=== PATIENT | male | born 1970 ===

== ENCOUNTER 2017-01-13 09:48 | Observation (INO) | payer MEDICAID ==
--- NOTE | 2017-01-13 09:54 | ED PDOC ---
Arrival/HPI - General Chief Complaint: GI Problem Time Seen by Provider: 01/13/17 09:52 - History of Present Illness Narrative History of Present Illness (Text): 01/13/17 10:10 Patient is a 46 y/o M with hx of anxiety, on daily medication, presenting with chest pain. Patient reports that at 915 this morning he had the acute onset of L sided chest pressure radiating to his L arm after being detained by immigration. He reports that he feels extremely anxious and worried that he is going to bed deported. He reports hx of anxiety, DM, and htn. Denies hx of cardiac workup. 01/13/17 15:27 Family/Social History - Physician Review Nursing Documentation Reviewed: Yes Family/Social History: No Known Family HX Allergies/Home Meds Allergies/Adverse Reactions: Allergies No Known Allergies Allergy (Verified 01/13/17 09:50) Review of Systems - Review of Systems Constitutional: absent: Fatigue, Weight Change, Fevers ENT: absent: Hearing Changes Respiratory: absent: SOB, Cough, Sputum, Wheezing Cardiovascular: Chest Pain, Palpitations. absent: Edema, Calf Pain, MANRIQUE, Orthopnea, Syncope Gastrointestinal: absent: Abdominal Pain Genitourinary Male: absent: Dysuria Neurological: absent: Headache Psychiatric: Anxiety Physical Exam Vital Signs Temp Pulse Pulse Resp BP BP Pulse Ox 01/13/17 15:21 97 01/13/17 13:42 89 97 01/13/17 10:11 120 H 145/90 01/13/17 10:00 97.0 F L 123 H 20 145/90 98 Temperature: Afebrile Blood Pressure: Normal Pulse: Tachycardic Respiratory Rate: Normal Appearance: Positive for: Well-Appearing, Non-Toxic, Comfortable Pain Distress: None Mental Status: Positive for: Alert and Oriented X 3 - Systems Exam Head: Present: Atraumatic, Normocephalic Pupils: Present: PERRL Extroacular Muscles: Present: EOMI Conjunctiva: Present: Normal Mouth: Present: Moist Mucous Membranes Neck: Present: Normal Range of Motion Respiratory/Chest: Present: Clear to Auscultation, Good Air Exchange. No: Respiratory Distress Cardiovascular: Present: Normal S1, S2, Tachycardic. No: Murmurs Abdomen: No: Tenderness, Distention Upper Extremity: Present: Normal Inspection, Normal ROM, NORMAL PULSES. No: Edema Lower Extremity: Present: Normal Inspection, NORMAL PULSES. No: Edema, CALF TENDERNESS, Tenderness Neurological: Present: GCS=15, CN II-XII Intact Psychiatric: Present: Alert, Oriented x 3 Medical Decision Making ED Course and Treatment: 01/13/17 09:53 Patient was tachycardia on arrival. Presentation is more consistent with anxiety, but due to risk factors, will get trop x 2 to evaluate. EKG shows sinus tachycardia at 126bpm with no ST elevation. Differential dx anxiety vs PE vs acs 01/13/17 13:00 Repeat HR:94. Cxray negative. Trop x 1 negative. FS now 170 after treatment with insulin. Will sign out to Dr. De León to follow-up second trop at 4pm - Lab Interpretations Lab Results: 01/13/17 10:30 01/13/17 10:30 Lab Results 01/13/17 10:30: WBC 8.1, RBC 4.77, Hgb 14.6, Hct 43.0, MCV 90.1, MCH 30.6, MCHC 34.0, RDW 12.9, Plt Count 254, MPV 8.8, Neut % (Auto) 66.8, Lymph % (Auto) 23.5 , Appling % (Auto) 7.6, Eos % (Auto) 1.6, Baso % (Auto) 0.5, Neut # 5.4, Lymph # 1.9, Appling # 0.6, Eos # 0.1, Baso # 0.0 01/13/17 10:30: Sodium 140, Potassium 4.0, Chloride 99, Carbon Dioxide 19 L, Anion Gap 26 H, BUN 16, Creatinine 0.8, Est GFR ( Amer) > 60, Est GFR ( Non-Af Amer) > 60, Random Glucose 364 H, Calcium 9.1, Total Bilirubin 0.9, AST 113 H, ALT 96 H, Alkaline Phosphatase 84, Total Creatine Kinase 440 H, CK-MB ( Mass) 1.59, Troponin I 0.0150, Total Protein 8.3 H, Albumin 4.9, Globulin 3.4, Albumin/Globulin Ratio 1.5 01/13/17 09:57: POC Glucose (mg/dL) 324 H - RAD Interpretation Radiology Orders: 01/13/17 10:05 CHEST PORTABLE [RAD] Stat - Medication Orders Current Medication Orders: Sodium Chloride (Sodium Chloride 0.9%) 1,000 mls @ 1,000 mls/hr IV .Q1H SHELLEY Stop: 01/14/17 11:46 Last Admin: 01/13/17 11:53 Dose: 1,000 mls/hr Discontinued Medications Alprazolam (Xanax) 0.5 mg PO STAT STA Stop: 01/13/17 11:02 Last Admin: 01/13/17 11:36 Dose: 0.5 mg Alprazolam (Xanax) Confirm Administered Dose 0.5 mg .ROUTE .STK-MED ONE Stop: 01/13/17 11:30 Aspirin (Aspirin) 325 mg PO STAT STA Stop: 01/13/17 10:07 Last Admin: 01/13/17 11:36 Dose: 325 mg Aspirin (Aspirin) Confirm Administered Dose 325 mg .ROUTE .STK-MED ONE Stop: 01/13/17 11:30 Insulin Human Regular (Humulin R) 4 units SC STAT STA Stop: 01/13/17 11:47 Last Admin: 01/13/17 11:53 Dose: 4 units Disposition/Present on Arrival - Present on Arrival Any Indicators Present on Arrival: No - Disposition Have Diagnosis and Disposition been Completed?: Yes Diagnosis: Anxiety Disposition Time: 03:00 Condition: GOOD
[2017-01-13 10:11] VITALS: BP 145/90; RESP 20; TEMP 97
[2017-01-13 10:40] LABS: BASO % 0.5 % (0.0-2.0); EOS # 0.1 K/uL (0.0-0.7); EOS % 1.6 % (0.0-4.0); LYMPH # 1.9 K/uL (1.0-4.3); LYMPH % 23.5 % (20.0-40.0); MEAN CELL VOLUME 90.1 fl (80.0-94.0); MEAN CORPUSCULAR HEMOGLOBIN 30.6 pg (27.0-31.0); MEAN PLATELET VOLUME 8.8 fl (7.2-11.7); MONO # 0.6 K/uL (0.0-0.8); MONO % 7.6 % (0.0-10.0); NEUT # 5.4 K/uL (1.8-7.0); NEUT % 66.8 % (50.0-75.0); RED CELL DISTRIBUTION WIDTH 12.9 % (11.5-14.5); WHITE BLOOD COUNT 8.1 K/uL (4.8-10.8)
[2017-01-13 10:55] LABS: ALB/GLOB RATIO 1.5 (1.0-2.1); ALKALINE PHOSPHATASE 84 U/L (38-126); ALT/SGPT 96 U/L (21-72); AST/SGOT 113 U/L (17-59); BILIRUBIN,TOTAL 0.9 mg/dl (0.2-1.3); BLOOD UREA NITROGEN 16 mg/dl (9-20); CALCIUM 9.1 mg/dL (8.4-10.2); CARBON DIOXIDE 19 mmol/L (22-30); CHLORIDE 99 mmol/L (98-107); GFR AFRICAN-AMERICAN > 60; GLUCOSE,RANDOM 364 mg/dL (75-110); SODIUM 140 mmol/l (132-148); TOTAL PROTEIN 8.3 G/DL (6.3-8.2)
[2017-01-13] MEDS ORDERED: Insulin Regular 100 units/ml SC STA (11:46)
[2017-01-13] MEDS ORDERED: Sodium Chloride 0.9% 1,000 ML IV SCH (12:00)
--- NOTE | 2017-01-13 13:05 | RAD ---
HISTORY: chest pain, anxiety COMPARISON: None. FINDINGS: LUNGS: No active pulmonary disease. PLEURA: No significant pleural effusion identified, no pneumothorax apparent. CARDIOVASCULAR: No radiographic findings to suggest acute or significant cardiovascular disease. OSSEOUS STRUCTURES: No significant abnormalities. VISUALIZED UPPER ABDOMEN: Normal. OTHER FINDINGS: None. IMPRESSION: No active disease.
[2017-01-13 13:43] VITALS: PULSE 89; O2SAT 97
--- NOTE | 2017-01-13 15:21 | ED PDOC ---
- Laboratory Results Result Diagrams: 01/13/17 10:30 01/13/17 10:30 - ECG O2 Sat by Pulse Oximetry: 97 Medical Decision Making Medical Decision Makin:00 Patient is signed out to me by Kimberley Gomez MD pending repeat troponin for chest pain (likely anxiety) and final disposition. 17:00 Troponin negative. Pt stable for dc. Scribe Attestation: Documented by Altagracia Black, acting as a scribe for Shiela Ramirez MD. Provider Scribe Attestation: All medical record entries made by the Scribe were at my direction and personally dictated by me. I have reviewed the chart and agree that the record accurately reflects my personal performance of the history, physical exam, medical decision making, and the department course for this patient. I have also personally directed, reviewed, and agree with the discharge instructions and disposition. Disposition Counseled Patient/Family Regarding: Studies Performed, Diagnosis, Need For Followup - Clinical Impression Clinical Impression: Anxiety - POA Present On Arrival: Poor Glycemic Control - Disposition Disposition: Discharged/Transfer to Law Enforcement Disposition Time: 17:07 Condition: IMPROVED
== END 2017-01-13 17:09 ==
LOC: H.ER 09:48 → MERGE 10:34 → H.EROBSV 10:34
PROVIDERS: ADMIT Emergency Medicine; ATTEND Emergency Medicine
DX: F41.9 Anxiety disorder, unspecified (principal); E11.9 Type 2 diabetes mellitus without complications; I10 Essential (primary) hypertension

== ENCOUNTER 2017-09-23 14:36 | Emergency (ER) | payer SELFPAY ==
[2017-09-23 14:36] VITALS: BMI 25.8
[2017-09-23 14:45] VITALS: RESP 22; TEMP 98; O2SAT 97
--- NOTE | 2017-09-23 15:19 | ED PDOC ---
HPI: General Adult Time Seen by Provider: 09/23/17 14:55 Chief Complaint (Nursing): Medical Clearance Chief Complaint (Provider): Medical Clearance History Per: Patient History/Exam Limitations: no limitations Additional Complaint(s): Patient is a 46 year old male with a history of hypertension and diabetes, brought in by police for medical clearance for incarceration. Patient reports he has not eaten anything today. Complaining of a headache. States he has not taken medications in the past 2 days, and is unsure of blood sugar. Blood pressure is 161/109 on arrival. Patient cannot recall what medications he usually takes. PMD: Provider TBD Past Medical History Reviewed: Historical Data, Nursing Documentation, Vital Signs Vital Signs: Last Vital Signs Temp 98 F 09/23/17 14:42 Pulse 103 H 09/23/17 16:54 Resp 22 09/23/17 14:42 BP 161/109 H 09/23/17 16:54 Pulse Ox 97 09/23/17 16:36 - Medical History PMH: Depression, Diabetes, HTN, Hypercholesterolemia Denies: HIV, Chronic Kidney Disease - Family History Family History: States: Unknown Family Hx - Immunization History Hx Tetanus Toxoid Vaccination: Yes (10/31/15) - Home Medications Home Medications: Ambulatory Orders Medication Instructions Recorded Benztropine [Cogentin] 1 mg PO HS #30 tab 11/05/15 DiphenhydrAMINE [Benadryl] 50 mg IM Q6 PRN #0 vial 11/05/15 Gabapentin [Neurontin] 300 mg PO BID #60 cap 11/05/15 Gabapentin [Neurontin] 600 mg PO HS #30 tab 11/05/15 GlipiZIDE [Glucotrol] 10 mg PO ACB #0 tab 11/05/15 Haloperidol [Haldol] 2 mg PO HS #30 tab 11/05/15 Lisinopril [Zestril] 20 mg PO DAILY #0 tab 11/05/15 Magnesium Hydroxide [Milk Of 30 ml PO HS PRN #0 udc 11/05/15 Magnesia] Metoprolol Succinate [Toprol XL] 50 mg PO DAILY #0 tab 11/05/15 Multimineral/Multivitamin 1 tab PO DAILY #0 tab 11/05/15 [Therapeutic-M Tab] Pravastatin Sodium [Pravachol] 40 mg PO DAILY #0 tab 11/05/15 SITagliptin [Januvia] 100 mg PO DAILY #0 tab 11/05/15 Thiamine [Vitamin B1 Tab] 100 mg PO DAILY #0 tab 11/05/15 amLODIPine [Norvasc] 10 mg PO DAILY #0 tab 11/05/15 hydroCHLOROthiazide [Hydrodiuril] 25 mg PO DAILY #0 tab 11/05/15 traZODone [Desyrel] 50 mg PO HS PRN #30 tab 11/05/15 - Allergies Allergies/Adverse Reactions: Allergies Allergy/AdvReac Type Severity Reaction Status Date / Time No Known Allergies Allergy Verified 06/26/14 21:48 Review of Systems ROS Statement: Except As Marked, All Systems Reviewed And Found Negative Cardiovascular: Negative for: Chest Pain, Palpitations Respiratory: Negative for: Shortness of Breath Gastrointestinal: Negative for: Nausea, Vomiting, Abdominal Pain Neurological: Positive for: Headache. Negative for: Weakness, Dizziness Psych: Negative for: Suicidal ideation Physical Exam - Reviewed Nursing Documentation Reviewed: Yes Vital Signs Reviewed: Yes - Physical Exam Appears: Positive for: Non-toxic, No Acute Distress Head Exam: Positive for: ATRAUMATIC, NORMAL INSPECTION, NORMOCEPHALIC Skin: Positive for: Normal Color, Warm, Dry Eye Exam: Positive for: EOMI, Normal appearance, PERRL Neck: Positive for: Normal, Painless ROM Cardiovascular/Chest: Positive for: Regular Rate, Rhythm. Negative for: Murmur Respiratory: Positive for: Normal Breath Sounds. Negative for: Accessory Muscle Use, Respiratory Distress Gastrointestinal/Abdominal: Positive for: Normal Exam, Bowel Sounds, Soft. Negative for: Tenderness Back: Positive for: Normal Inspection. Negative for: Vertebral Tenderness Extremity: Positive for: Normal ROM. Negative for: Pedal Edema, Deformity Neurologic/Psych: Positive for: Alert, Oriented (x3). Negative for: Motor/ Sensory Deficits - ECG O2 Sat by Pulse Oximetry: 97 (RA) Pulse Ox Interpretation: Normal - Progress ED Course And Treament: LOPRESSOR 25 MG X 1 DOSE NORVASC 10 MG X DOSE BP158/96 HR 88 Medical Decision Making Medical Decision Making: Finger Stick is 130. Time: 16:19 Initial Plan: --Norvasc 10 mg PO --Lopressor 25 mg PO Scribe Attestation: Documented by Maylin Bosch, acting as a scribe for Anabel Willett PA-C Provider Scribe Attestation: All medical record entries made by the Scribe were at my direction and personally dictated by me. I have reviewed the chart and agree that the record accurately reflects my personal performance of the history, physical exam, medical decision making, and the department course for this patient. I have also personally directed, reviewed, and agree with the discharge instructions and disposition. Disposition - Clinical Impression Clinical Impression: Hypertension - Patient ED Disposition Is Patient to be Admitted: No - Disposition Referrals: [facility] [Outside] Disposition: Routine/Home Disposition Time: 17:32 Condition: STABLE Additional Instructions: PATIENT IS MEDICALLY AND PSYCHIATRICALLY CLEARED FOR INCARCERATION PLEASE ADDRESS PATIENT'S H/O HYPERTENSION AND DIABETES IF NEEDED AT [facility] Instructions: High Blood Pressure in Adults, Low Salt Diet Forms: [facility] (Estonian)
[2017-09-23 17:31] VITALS: BP 153/96; PULSE 88
== END 2017-09-23 18:05 ==
LOC: H.ER 14:36
DX: I10 Essential (primary) hypertension (principal); E11.9 Type 2 diabetes mellitus without complications

== ENCOUNTER 2017-11-24 15:19 | Inpatient (IN) | payer MEDICAID ==
[2017-11-24 15:19] VITALS: BMI 25.8
[2017-11-24] MEDS ORDERED: Insulin Regular 100 units/ml SC ONE (16:22)
[2017-11-24 16:24] LABS: BASO % 0.5 % (0.0-2.0); EOS # 0.1 K/uL (0.0-0.7); EOS % 1.4 % (0.0-4.0); HEMOGLOBIN 16.1 g/dL (12.0-18.0); LYMPH # 2.4 K/uL (1.0-4.3); LYMPH % 26.1 % (20.0-40.0); MEAN CELL VOLUME 87.9 fl (80.0-94.0); MEAN CORPUSCULAR HEMOGLOBIN 30.5 pg (27.0-31.0); MEAN CORPUSCULAR HGB CONC 34.7 g/dL (33.0-37.0); MEAN PLATELET VOLUME 8.4 fl (7.2-11.7); MONO # 0.7 K/uL (0.0-0.8); MONO % 7.5 % (0.0-10.0); NEUT # 5.9 K/uL (1.8-7.0); NEUT % 64.5 % (50.0-75.0); NRBC % 0.1 % (0.0-0.0); RBC 5.29 Mil/uL (4.40-5.90); RED CELL DISTRIBUTION WIDTH 15.1 % (11.5-14.5); WHITE BLOOD COUNT 9.2 K/uL (4.8-10.8)
--- NOTE | 2017-11-24 16:26 | RAD ---
HISTORY: SOB COMPARISON: 10/30/2025 FINDINGS: LUNGS: No active pulmonary disease. PLEURA: No significant pleural effusion identified, no pneumothorax apparent. CARDIOVASCULAR: Normal. OSSEOUS STRUCTURES: No significant abnormalities. VISUALIZED UPPER ABDOMEN: Normal. OTHER FINDINGS: None. IMPRESSION: No active disease.
[2017-11-24 16:33] LABS: ALB/GLOB RATIO 1.1 (1.0-2.1); ALBUMIN 4.3 g/dL (3.5-5.0); ALT/SGPT 72 U/L (21-72); AST/SGOT 71 U/L (17-59); BLOOD UREA NITROGEN 14 mg/dl (9-20); CALCIUM 9.7 mg/dL (8.4-10.2)
[2017-11-24 16:34] LABS: GFR AFRICAN-AMERICAN > 60; GFR NON-AFRICAN AMERICAN > 60
--- NOTE | 2017-11-24 16:34 | ED PDOC ---
HPI: Psych/Substance Abuse Time Seen by Provider: 11/24/17 15:31 Chief Complaint (Nursing): Psychiatric Evaluation Chief Complaint (Provider): im hearing voices History Per: Patient, [employer] ([employer] #[id number]) Onset/Duration Of Symptoms: Gradual Current Symptoms Are (Timing): Still Present Suicide/Self Injury Attempted (Context): None Modifying Factor(s): None Severity: Moderate Associated Symptoms: Depression, Paranoia, Suicidal Thoughts Involuntary Hold By: Emergency Physician Additional History Per: Prior Records Additional Complaint(s): 46yo male states he's been hearing voices for 4-5 days telling him to kill himself. Denies drug use, admits to some alcohol intake last 2 days ago, denies other toxic ingestion or suicide attempt. Feels depressed since leaving longterm for immigration 2 months ago, recently homeless. Also states he hasnt been taking diabetes or blood pressure medication. Denies chest pain, SOB, headache, syncope, weakness, abd pain or vomiting. Admits to some polyuria and polydipsia. Past Medical History Reviewed: Historical Data, Nursing Documentation, Vital Signs Vital Signs: Last Vital Signs Temp 98.7 F 11/24/17 15:20 Pulse 99 H 11/24/17 16:07 Resp 16 11/24/17 15:20 BP 168/114 H 11/24/17 16:07 Pulse Ox 99 11/24/17 15:20 - Medical History PMH: Depression, Diabetes, HTN, Hypercholesterolemia Denies: HIV, Chronic Kidney Disease - Family History Family History: States: Unknown Family Hx - Living Arrangements Living Arrangements: With Family - Social History Current smoker - smoking cessation education provided: No Alcohol: Occasional Drugs: Denies - Immunization History Hx Tetanus Toxoid Vaccination: Yes (10/31/15) - Home Medications Home Medications: Ambulatory Orders Medication Instructions Recorded No Known Home Med 11/24/17 - Allergies Allergies/Adverse Reactions: Allergies Allergy/AdvReac Type Severity Reaction Status Date / Time No Known Allergies Allergy Verified 06/26/14 21:48 - Laboratory Results Result Diagrams: 11/24/17 16:00 11/24/17 16:00 - ECG O2 Sat by Pulse Oximetry: 99 - Radiology X-Ray: Read By Radiologist X-Ray Interpretation: No Acute Disease Medical Decision Making Medical Decision Making: labs reviewed, moderate hyperglycemia- metformin and low dose insulin initiated BP elevated but improved s/p clonidine, lisinopril also initiated. EKG NSR without ST changes Patient remained calm in the ED without issue. Per crisis admit to Dr De Leon for depression. 730p BP 154/83 Repeat sugar 207 Medically stable for psychiatric admission, will require medical consult on floor for chronic medical issues. Disposition - Clinical Impression Clinical Impression: Depression, Diabetes, Hypertension - Patient ED Disposition Is Patient to be Admitted: No - Disposition Disposition Time: 18:00 Condition: STABLE Forms: [facility] (Taiwanese) - Pt Status Changed To: Hospital Disposition Of: Inpatient - Admit Certification Admit to Inpatient:: After my assessment, the patient will require hospitalization for at least two midnights. This is because of the severity of symptoms shown, intensity of services needed, and/or the medical risk in this patient being treated as an outpatient. - POA Present On Arrival: Poor Glycemic Control
[2017-11-24] MEDS ORDERED: Insulin Regular 100 units/ml ONE (16:58)
[2017-11-24 20:20] LABS: SQUAMOUS EPITHIAL 1 /hpf (0-5); URINE BILIRUBIN NEGATIVE (NEGATIVE); URINE BLOOD NEGATIVE (NEGATIVE); URINE CLARITY CLEAR (Clear); URINE COLOR YELLOW (YELLOW); URINE GLUCOSE (UA) >=500 mg/dL (Normal); URINE LEUKOCYTE ESTERASE NEG Leu/uL (Negative); URINE PROTEIN NEGATIVE (NEGATIVE); URINE UROBILINOGEN 0.2-1.0 mg/dL (0.2-1.0)
[2017-11-24 20:38] LABS: BARBITURATES, UR NEGATIVE (NEGATIVE); BENZODIAZEPINES, UR POSITIVE (NEGATIVE); OPIATES, UR NEGATIVE (NEGATIVE); PHENCYCLIDINE, UR NEGATIVE (NEGATIVE)
[2017-11-24 22:24] VITALS: O2SAT 99
[2017-11-25] MEDS ORDERED: DiphenhydrAMINE 50 mg/ml Inj IM PRN (00:15)
[2017-11-25] MEDS ORDERED: Magnesium Hydroxide Susp 30 ml UD PO PRN (00:15)
[2017-11-25] MEDS ORDERED: Alum-Mag Hydrox-Simethicone Susp (30 mL) PO PRN (00:15)
--- NOTE | 2017-11-25 00:42 | PCM.BM ---
<Daryl Rivas - Last Filed: 11/25/17 00:40> Treatment Plan Problems - Problems identified on initial assessmt Hopelessness/Helplessness Date Initiated: 11/25/17 Time Initiated: 00:40 Assessment reference: NA Status: Active Treatment assets and liabiliti Patient Assests: adapts well, cooperative, self-reliant, ADL independent, negotiates basic needs Patient Liabilities: live alone, financial problems, poor support system, medical problems, legal issue - Milieu Protocol Maintain good personal hygiene: every shift Encourage regular showers, every shift Remind patient to perform daily oral care, every shift Assist patient to perform ADL's Maintain personal safety: daily Educate patient to report safety concerns to staff, daily Monitor environment for contraband/sharps Medication safety: Monitor for expected outcome, potential side effects: daily, Assess barriers to learning: daily, Assess readiness for medication education: daily <Christy Burch - Last Filed: 11/25/17 12:12> - Diagnosis (1) Major depressive disorder with psychotic features Status: Acute Interventions: Medication management, Individual and group therapy, Psychoeducation 11/25/17 12:13 <Ninfa uSggs - Last Filed: 11/25/17 15:36> Family Contact Family involvement: Famliy/SO not involved - Outside Agency [facility] Care involvment: Not involved - Goals for Treatment Patient goals for treatment: "I need help." Discharge/Continuing Care - Education Needs Education Needs: Patient Medication, Patient Diagnosis/Disease Process, Patient Coping Skills, Patient Placement options, Patient Community resources, Patient Activities of Daily Living, Patient Personal Hygiene/Grooming, Patient Aftercare Safety Plan - Discharge Discharge Criteria: Tolerates medication w/o severe side effects, Free of Suicidal thoughts, Free of agitation, Normal sleep pattern, Ability to care for self, Reduction of target symptoms Discharge to:: [facility] - Additional Comments 11/25/17 15:34 Pt seen and discusse din team meeting. Reason for hospitalization reviewed and discussed. Pt reported hearing voices and feeling depressed due to his current living situation. Pt is homeless and currently living on the streets. Pt reported he is not welcomed at a half-way due to criminal record. Pt reported he was arrested by ICE in January 2017 and released in September 2017. Pt reported medication non-compliance. Pt reported being dx with schizophrenia, paranoid type and depression. Pt's social and medical issues reviewed. Pt's medications reviewed. Tx plan reviewed and pt is agreeable. SW to continue to follow case. - Treatment Team Participation Discussed with Family/SO: No Was Patient/Family/SO present at Treatment Team Meeting: Yes
[2017-11-25 07:32] LABS: T4 8.45 ug/dl (5.5-11.0)
--- NOTE | 2017-11-25 12:51 | PCM.PSYCH ---
Initial Psychiatric Evaluation - Initial Psychiatric Evaluation Type of Admission: Voluntary Legal Status: Capacity Chief Complaint (in patient's own words): "I'm depressed." Patient's Reaction to Hospitalization: HPI: 46 yo Palestinian male, presents to the ED w/ worsening depression, auditory hallucinations and passive suicidal ideation w/o plan or intent. He reports that his current social stressors, including poverty, lack of social support and homelessness make him feel depressed. He reports intermittent auditory hallucinations of noises, the telephone ringing or his name being called. + Anxiety. No current active SI/HI. No acute paranoia. PPHx: H/o psychiatric admission to [facility] (tx w/ Haldol, Trazdone, Cogentin and Gabapentin); no current compliant w/ medications; does not recall which medications he took in the past PMHx: Self reported h/o DM, HTN, Hemorrhoids; Now reporting burning, pain and bleeding when he urinated in addition to penile swelling and irritation ALL: NKDA SHx: Homeless, from [place]; h/o being detained by immigration from 01/22-09/25; denies current drug/etoh/cig use Current Medications: Active Medications Generic Name Dose Route Start Last Admin Trade Name Freq PRN Reason Stop Dose Admin Acetaminophen 650 mg 11/25/17 00:15 Tylenol 325mg Tab PO Q4 PRN Pain, moderate (4-7) Al Hydrox/Mg Hydrox/Simethicone 30 ml 11/25/17 00:15 Maalox Plus 30 Ml PO Q4 PRN Dyspepsia Diphenhydramine HCl 50 mg 11/25/17 00:15 Benadryl IM Q6 PRN Extrapyramidal S/S Unable PO Diphenhydramine HCl 50 mg 11/25/17 00:15 Benadryl PO Q6 PRN Extrapyramidal Symptoms Diphenhydramine HCl 50 mg 11/25/17 00:36 Benadryl PO HS PRN Sleep Haloperidol 5 mg 11/25/17 00:15 Haldol PO Q4 PRN Agitation Haloperidol Lactate 5 mg 11/25/17 00:15 Haldol IM Q4 PRN Agitation, Unable to Take PO Lorazepam 2 mg 11/25/17 00:15 Ativan IM Q4 PRN Anxiety/Agitation,Unable PO Lorazepam 2 mg 11/25/17 00:15 11/25/17 00:59 Ativan PO 2 mg Q4 PRN Administration Anxiety/Agitation Magnesium Hydroxide 30 ml 11/25/17 00:15 Milk Of Magnesia PO HS PRN Constipation Risperidone 0.5 mg 11/25/17 22:00 Risperdal Tab PO HS SHELLEY Trazodone HCl 50 mg 11/25/17 22:00 Desyrel PO HS SHELLEY Past Psychiatric History - Past Psychiatric History Previous Treatment History: Inpatient Pertinent Medical Hx (Current Medical&Sleep Prob, Allergies): Allergies Allergy/AdvReac Type Severity Reaction Status Date / Time No Known Allergies Allergy Verified 06/26/14 21:48 No Known Home Med 11/24/17 Review of Systems - Psychiatric Psychiatric: As Per HPI, Abnormal Sleep Pattern, Anxiety, Auditory Hallucinations, Change in Appetite, Depression, Difficulty Concentrating, Hallucinations, Irritability, Suicidal Ideation Mental Status Examination - Personal Presentation Personal Presentation: Looks stated age - Affect Affect: Depressed, Other (Irritable) - Motor Activity Motor Activity: Psychomotor Agitation - Reliability in Providing Information Reliability in Providing Information: Fair - Speech Speech: Organized, Coherent - Mood Mood: Depressed - Formal Thought Process Formal Thought Process: Hallucinations - Hallucinations/Delusions Hallucinations: Auditory - Obsessions/Compulsions Obsessions: No Compulsions: No - Cognitive Functions Orientation: Person, Place, Situation, Time Sensorium: Alert Attention/Concentration: Attentive Judgement: Intact, as evidence by: Insight regarding need for hospitalization Memory: Recent intact, as evidence by: Ability to recall events of the day, Remote intact, as evidenced by: Abilit to recall sig. life events, Remote intact , as evidenced by: Ability to recall historical events - Risk Risk: Suicidal, Diminished functioning - Strength & Assets Inventory Strength & Assets Inventory: Cooperative - Limitations Limitations: Other (Homelessness; Poverty) DSM 5 DX - DSM 5 DSM 5 Diagnosis: Major Depressive Disorder w/ Psychotic Features - Recommended/Plan of Treatment Treatment Recommendations and Plan of Treatment: Major Depressive Disorder w/ Psychotic Features -Admit to psychiatry unit -Start Trazodone 50 mg PO HS for depression; will titrate as clinically appropriate -Start Risperdal 0.5 mg PO HS; will titrate as clinically appropriate -Medicine consult -Urology consult -Individual and group therapy -Disposition planning -No 1:1 indicated at this time Projected ELOS: 5-8 days Discharge Plan and Discharge Criteria: Discharge when patient is psychiatrically stable - Smoking Cessation Smoking Cessation Initiated: No Reason for not providing: Not indicated
--- NOTE | 2017-11-25 16:03 | CON ---
DATE: COMPREHENSIVE UROLOGIC CONSULTATION BRIEF HISTORY: The patient is a 46-year-old male from [place] admitted to the Psychiatric Department with history of depression who started complaining about 6 days ago with some dysuria. The patient denies any history of any kidney disease or kidney stones. No history of cancer. He voids usually with his usual normal stream. PHYSICAL EXAMINATION: GENERAL: Today, the patient is a well-developed and well-nourished male. He is alert. He is oriented. HEENT: Grossly within normal limits. NECK: Supple. Thyroid not palpable. ABDOMEN: Soft, nondistended, and nontender. No CVA tenderness. No suprapubic tenderness. GENITALIA: The patient has a positive balanitis of the foreskin with some cuts on the foreskin, which showed some blood. He has normal urethral meatus. Testicles are down bilaterally and nontender without any masses. RECTAL: Normal rectal tone, without fluctuance or masses. Prostate is slightly enlarged, smooth, symmetrical, nontender without nodules or indurations, with a palpable median sulcus. LABORATORY EVALUATION: On 11/24/2017 showed CBC with a WBC count of 9.2, hemoglobin of 16.1, and hematocrit of 46.5. Platelet count was 253,000. Chem profile showed a sodium of 138, potassium of 3.7, chloride of 99, and CO2 of 22. BUN and creatinine of 14 and 0.8 respectively with a GFR of greater than 60. Glucose is 246, which was elevated. Hemoglobin A1c was 9.9 on 11/25/2017. His AST was 71 and ALT was 72, both elevated. Alkaline phosphatase was 128, also elevated. His triglyceride level was 204. Cholesterol level was 220, which was elevated. HDL was 49. TSH was 2.03. Urinalysis on 11/24/2017 showed a urinalysis was relatively relatively completely within normal limits. The patient still complains of some intermittent dysuria. DIAGNOSTIC IMPRESSION: 1. Balanitis of the foreskin. 2. Intermittent dysuria. PLAN: The plan for this patient is to send the urine for culture and sensitivity. We will also start the patient on Mycolog II ointment to be applied b.i.d. for treatment of his balanitis. Bipin Banuelos MD [facility] # [id number] MTDМария
[2017-11-25] MEDS: Mycolog II OINT TOP SCH (16:45)
--- NOTE | 2017-11-25 17:33 | CP.PCM.CON ---
History of Present Illness - History of Present Illness History of Present Illness: Mr. Lawson is a pleasant 46 yo M with pmhx of HTN, dyslipidemia, DM2, anxiety and depression presents with recent suicidal ideations. He reports increased thoughts of suicide but no active plan. Denies HI. Reports increased anxiety. He also reports penile swelling. pmhx: HTN, dyslipidemia, DM2, anxiety and depression famhx: depression, diabetes surghx: none Soc: lives with friend, denies smoking or illicit drugs. Reports 5-6 beers a week. Rx: metformin, insulin, alprazolam NKDA Review of Systems - Constitutional Constitutional: As Per HPI - Cardiovascular Cardiovascular: absent: Chest Pain - Respiratory Respiratory: absent: Cough - Gastrointestinal Gastrointestinal: absent: Abdominal Pain, Constipation, Diarrhea - Reproductive: Male Reproductive:Male: As Per HPI, Genital Pruritis - Psychiatric Psychiatric: Anxiety, Auditory Hallucinations (ringing, sounds), Depression, Suicidal Ideation, Visual Hallucinations (dark objects). absent: Homicidal Ideation Past Patient History - Past Medical History & Family History Past Medical History?: Yes - Past Social History Smoking Status: Unknown If Ever Smoked Alcohol: Occasional Drugs: Denies - CARDIAC Hx Cardiac Disorders: Yes Hx Hypertension: Yes - PULMONARY Hx Respiratory Disorders: No - NEUROLOGICAL Hx Neurological Disorder: No - HEENT Hx HEENT Problems: No - RENAL Hx Chronic Kidney Disease: No - ENDOCRINE/METABOLIC Hx Endocrine Disorders: Yes Hx Diabetes Mellitus Type 2: Yes - HEMATOLOGICAL/ONCOLOGICAL Hx Human Immunodeficiency Virus (HIV): No - INTEGUMENTARY Hx Dermatological Problems: No - MUSCULOSKELETAL/RHEUMATOLOGICAL Hx Musculoskeletal Disorders: No Hx Falls: No - GASTROINTESTINAL Hx Gastrointestinal Disorders: No - GENITOURINARY/GYNECOLOGICAL Hx Genitourinary Disorders: No - PSYCHIATRIC Hx Anxiety: Yes Hx Depression: Yes Hx Substance Use: No - SURGICAL HISTORY Hx Surgeries: No - ANESTHESIA Hx Anesthesia: No Meds Allergies/Adverse Reactions: Allergies Allergy/AdvReac Type Severity Reaction Status Date / Time No Known Allergies Allergy Verified 06/26/14 21:48 - Medications Medications: Current Medications Acetaminophen (Tylenol 325mg Tab) 650 mg PO Q4 PRN PRN Reason: Pain, moderate (4-7) Al Hydrox/Mg Hydrox/Simethicone (Maalox Plus 30 Ml) 30 ml PO Q4 PRN PRN Reason: Dyspepsia Diphenhydramine HCl (Benadryl) 50 mg IM Q6 PRN PRN Reason: Extrapyramidal S/S Unable PO Diphenhydramine HCl (Benadryl) 50 mg PO Q6 PRN PRN Reason: Extrapyramidal Symptoms Diphenhydramine HCl (Benadryl) 50 mg PO HS PRN PRN Reason: Sleep Haloperidol (Haldol) 5 mg PO Q4 PRN PRN Reason: Agitation Haloperidol Lactate (Haldol) 5 mg IM Q4 PRN PRN Reason: Agitation, Unable to Take PO Lorazepam (Ativan) 2 mg IM Q4 PRN PRN Reason: Anxiety/Agitation,Unable PO Lorazepam (Ativan) 2 mg PO Q4 PRN PRN Reason: Anxiety/Agitation Last Admin: 11/25/17 14:00 Dose: 2 mg Magnesium Hydroxide (Milk Of Magnesia) 30 ml PO HS PRN PRN Reason: Constipation Nystatin/Triamcinolone Acetonide (Mycolog Ii Oint) 1 applic TOP TID [facility] Last Admin: 11/25/17 16:45 Dose: 1 applic Risperidone (Risperdal Tab) 0.5 mg PO HS [facility] Trazodone HCl (Desyrel) 50 mg PO HS [facility] Physical Exam - Constitutional Appears: No Acute Distress - Eye Exam Eye Exam: EOMI - Respiratory Exam Respiratory Exam: Clear to Auscultation Bilateral, NORMAL BREATHING PATTERN. absent: Wheezes - Cardiovascular Exam Cardiovascular Exam: REGULAR RHYTHM, +S1, +S2 - GI/Abdominal Exam GI & Abdominal Exam: Normal Bowel Sounds, Soft. absent: Tenderness - Extremities Exam Extremities exam: Negative for: calf tenderness - Neurological Exam Neurological exam: Alert, CN II-XII Intact, Oriented x3 - Psychiatric Exam Psychiatric exam: Normal Affect, Normal Mood Results - Vital Signs Recent Vital Signs: Last Vital Signs Temp 97.6 F 11/25/17 16:26 Pulse 72 11/25/17 16:26 Resp 20 11/25/17 16:26 BP 144/94 H 11/25/17 16:26 Pulse Ox 99 11/25/17 00:05 - Labs Result Diagrams: 11/24/17 16:00 11/24/17 16:00 Labs: Laboratory Results - last 24 hr 11/24/17 11/24/17 11/24/17 20:05 20:05 20:06 POC Glucose (mg/dL) 207 H Hemoglobin A1c Triglycerides Cholesterol LDL Cholesterol Direct HDL Cholesterol Thyroxine (T4) TSH 3rd Generation Urine Color Yellow Urine Clarity Clear Urine pH 6.0 Ur Specific Balsam 1.017 Urine Protein Negative Urine Glucose (UA) >=500 Urine Ketones Negative Urine Blood Negative Urine Nitrate Negative Urine Bilirubin Negative Urine Urobilinogen 0.2-1.0 Ur Leukocyte Esterase Neg Urine RBC (Auto) 1 Urine Microscopic WBC < 1 Ur Squamous Epith Cells 1 Urine Opiates Screen Negative Urine Methadone Screen Negative Ur Barbiturates Screen Negative Ur Phencyclidine Scrn Negative Ur Amphetamines Screen Negative U Benzodiazepines Scrn Positive U Oth Cocaine Metabols Negative U Cannabinoids Screen Negative 11/25/17 11/25/17 11/25/17 05:54 06:10 06:10 POC Glucose (mg/dL) 249 H Hemoglobin A1c 9.9 H Triglycerides 204 H Cholesterol 220 H LDL Cholesterol Direct 140 H HDL Cholesterol 49 Thyroxine (T4) 8.45 TSH 3rd Generation 2.03 Urine Color Urine Clarity Urine pH Ur Specific Balsam Urine Protein Urine Glucose (UA) Urine Ketones Urine Blood Urine Nitrate Urine Bilirubin Urine Urobilinogen Ur Leukocyte Esterase Urine RBC (Auto) Urine Microscopic WBC Ur Squamous Epith Cells Urine Opiates Screen Urine Methadone Screen Ur Barbiturates Screen Ur Phencyclidine Scrn Ur Amphetamines Screen U Benzodiazepines Scrn U Oth Cocaine Metabols U Cannabinoids Screen 11/25/17 11:15 POC Glucose (mg/dL) 279 H Hemoglobin A1c Triglycerides Cholesterol LDL Cholesterol Direct HDL Cholesterol Thyroxine (T4) TSH 3rd Generation Urine Color Urine Clarity Urine pH Ur Specific Balsam Urine Protein Urine Glucose (UA) Urine Ketones Urine Blood Urine Nitrate Urine Bilirubin Urine Urobilinogen Ur Leukocyte Esterase Urine RBC (Auto) Urine Microscopic WBC Ur Squamous Epith Cells Urine Opiates Screen Urine Methadone Screen Ur Barbiturates Screen Ur Phencyclidine Scrn Ur Amphetamines Screen U Benzodiazepines Scrn U Oth Cocaine Metabols U Cannabinoids Screen Assessment & Plan - Assessment and Plan (Free Text) Assessment: 46 yo m with pmhx of HTN, DM2, dyslipidemia, depression and anxiety presents with suicidal ideation Plan: Depression with suicidal ideation -managed by psychiatry -recommendations appreciated DM2 -Algoliptin Benzoate 25 mg, Lantus, Glipizide 10 mg, Metformin 1000 -accuchecks -insulin medium dose ss -f/u hba1c Peripheral neuropathy -Gabapentin 300 TID Dyslipidemia -Atorvastatin 40 mg HTN -Lisinopril-HCTZ 20-25; metoprolol 50 mg er; Amlodipine 10 mg Balanitis -Urology consulted: recommendations appreciated: Added Mycolog BID -f/u UA/CX DVT prophylaxis -pt ambulating -scd
[2017-11-25] MEDS ORDERED: Glucagon Recombinant 1 mg Inj IM PRN (17:50)
[2017-11-25] MEDS ORDERED: Dextrose 50% SYRINGE Inj (50 ml) IV PRN (17:50)
[2017-11-25] MEDS: Insulin Regular 100 units/ml SC SCH (21:08)
[2017-11-26 08:26] LABS: BLOOD UREA NITROGEN 18 mg/dl (9-20); CALCIUM 9.2 mg/dL (8.4-10.2); GFR AFRICAN-AMERICAN > 60; GFR NON-AFRICAN AMERICAN > 60; HDL CHOLESTEROL 49 MG/DL (30-70)
[2017-11-26 08:27] LABS: BASO % 0.4 % (0.0-2.0); EOS # 0.2 K/uL (0.0-0.7); EOS % 3.2 % (0.0-4.0); HEMOGLOBIN 15.5 g/dL (12.0-18.0); LYMPH # 1.5 K/uL (1.0-4.3); LYMPH % 25.5 % (20.0-40.0); MEAN CELL VOLUME 89.7 fl (80.0-94.0); MEAN CORPUSCULAR HGB CONC 33.4 g/dL (33.0-37.0); MEAN PLATELET VOLUME 8.6 fl (7.2-11.7); MONO # 0.5 K/uL (0.0-0.8); NEUT # 3.7 K/uL (1.8-7.0); NEUT % 61.9 % (50.0-75.0); RBC 5.17 Mil/uL (4.40-5.90); RED CELL DISTRIBUTION WIDTH 14.3 % (11.5-14.5); WHITE BLOOD COUNT 5.9 K/uL (4.8-10.8)
[2017-11-26 08:35] LABS: LDL CHOLESTEROL 139 mg/dL (0-129)
[2017-11-26] MEDS: Insulin Regular 100 units/ml SC SCH ×4 (08:58→21:09)
[2017-11-26] MEDS: Mycolog II OINT TOP SCH ×3 (09:06→17:07)
[2017-11-26] MEDS: Metoprolol Succinate 50 mg XL Tab PO SCH (09:10)
--- NOTE | 2017-11-26 10:14 | PCM.PYCHPN ---
Psychiatric Progress Note - Psychiatric Progress Note Patient seen today, length of contact: pt seen and evaluate Patient Chief Complaint: pt has remained depressed and hearing voices and remains with poor insight and need stabilization. Medication Change: No Medical Record Reviewed: Yes Mental Status Examination - Cognitive Function Orientation: Person, Place, Situation, Time Attention: Poor Concentration: Poor Association: WNL Fund of Knowledge: WNL - Mood Mood: Depressed - Affect Affect: Depressed, Other (Irritable) - Formal Thought Process Formal Thought Process: Hallucinations - Suicidal Ideation Suicidal Ideation: No - Homicidal Ideation Homicidal Ideation: No Goal/Treatment Plan - Goal/Treatment Plan Progress Toward Problem(s) and Goals/Treatment Plan: will continue to titrate risperdal to stabilize the pt and engage pt in therapy and groups.
--- NOTE | 2017-11-26 11:41 | CARD ---
APPROVED REPORT EKG Measurement Heart [id number] <Conclusion> Normal sinus rhythm Moderate voltage criteria for LVH, may be normal variant Borderline ECG
[2017-11-27] MEDS: Insulin Regular 100 units/ml SC SCH ×4 (08:29→21:19)
[2017-11-27] MEDS: Mycolog II OINT TOP SCH ×3 (08:31→17:30)
[2017-11-27] MEDS: Metoprolol Succinate 50 mg XL Tab PO SCH (08:33)
[2017-11-27] MEDS: Enoxaparin 40 mg Syringe SC SCH (12:35)
--- NOTE | 2017-11-27 13:50 | CP.PCM.PN ---
Subjective - Date & Time of Evaluation Date of Evaluation: 11/27/17 Time of Evaluation: 13:00 - Subjective Subjective: Pt seen and examined at bedside. Reports improved balanitis. Denies AH/VH. Reports increase in thoughts. Denies dysuria. Objective - Vital Signs/Intake and Output Vital Signs (last 24 hours): Temp Pulse Resp BP Pulse Ox 97.1 F L 80 19 148/78 99 11/27/17 09:00 11/27/17 09:00 11/27/17 09:00 11/27/17 09:00 11/25/17 00:05 - Medications Medications: Current Medications Acetaminophen (Tylenol 325mg Tab) 650 mg PO Q4 PRN PRN Reason: Pain, moderate (4-7) Last Admin: 11/27/17 06:36 Dose: 650 mg Al Hydrox/Mg Hydrox/Simethicone (Maalox Plus 30 Ml) 30 ml PO Q4 PRN PRN Reason: Dyspepsia Amlodipine Besylate (Norvasc) 10 mg PO DAILY [facility] Last Admin: 11/27/17 08:32 Dose: 10 mg Atorvastatin Calcium (Lipitor) 40 mg PO DAILY [facility] Last Admin: 11/27/17 08:30 Dose: 40 mg Dextrose (Dextrose 50% Inj) 0 ml IV STAT PRN; Protocol PRN Reason: Hypoglycemia Protocol Dextrose (Glutose 15) 0 gm PO ONCE PRN; Protocol PRN Reason: Hypoglycemia Protocol Diphenhydramine HCl (Benadryl) 50 mg IM Q6 PRN PRN Reason: Extrapyramidal S/S Unable PO Diphenhydramine HCl (Benadryl) 50 mg PO Q6 PRN PRN Reason: Extrapyramidal Symptoms Diphenhydramine HCl (Benadryl) 50 mg PO HS PRN PRN Reason: Sleep Enoxaparin Sodium (Lovenox) 40 mg SC DAILY [facility] PRN Reason: Protocol Last Admin: 11/27/17 12:35 Dose: 40 mg Gabapentin (Neurontin) 300 mg PO TID [facility] Last Admin: 11/27/17 12:46 Dose: 300 mg Glipizide (Glucotrol) 10 mg PO ACB [facility] Last Admin: 11/27/17 08:29 Dose: 10 mg Glucagon (Glucagen Diagnostic Kit) 0 mg IM STAT PRN; Protocol PRN Reason: Hypoglycemia Protocol Haloperidol (Haldol) 5 mg PO Q4 PRN PRN Reason: Agitation Haloperidol Lactate (Haldol) 5 mg IM Q4 PRN PRN Reason: Agitation, Unable to Take PO Hydrochlorothiazide (Hydrodiuril) 25 mg PO DAILY [facility] Last Admin: 11/27/17 08:30 Dose: 25 mg Insulin Detemir (Levemir) 10 units SC HS [facility] Insulin Human Regular (Humulin R) [address] [facility] PRN Reason: Protocol Last Admin: 11/27/17 12:36 Dose: 3 u Lisinopril (Zestril) 40 mg PO DAILY [facility] Lorazepam (Ativan) 2 mg IM Q4 PRN PRN Reason: Anxiety/Agitation,Unable PO Lorazepam (Ativan) 2 mg PO Q4 PRN PRN Reason: Anxiety/Agitation Last Admin: 11/25/17 14:00 Dose: 2 mg Magnesium Hydroxide (Milk Of Magnesia) 30 ml PO HS PRN PRN Reason: Constipation Metformin HCl (Glucophage) 1,000 mg PO BIDWM [facility] Last Admin: 11/27/17 08:28 Dose: 1,000 mg Metoprolol Succinate (Toprol Xl) 50 mg PO DAILY [facility] Last Admin: 11/27/17 08:33 Dose: 50 mg Nystatin/Triamcinolone Acetonide (Mycolog Ii Oint) 1 applic TOP TID [facility] Last Admin: 11/27/17 12:46 Dose: 1 applic Risperidone (Risperdal Tab) 0.5 mg PO [facility] Last Admin: 11/26/17 21:06 Dose: 0.5 mg Trazodone HCl (Desyrel) 50 mg PO [facility] Last Admin: 11/26/17 21:06 Dose: 50 mg - Labs Labs: 11/26/17 07:15 11/26/17 07:15 - Constitutional Appears: Well, No Acute Distress - Eye Exam Eye Exam: EOMI - Neck Exam Neck Exam: Full ROM - Rectal Exam Rectal Exam: Hemorrhoids (external) Additional comments: L gluteal cleft abscess noted 1cm x1cm. slightly raised. nontender to tough. - Extremities Exam Extremities Exam: Full ROM - Neurological Exam Neurological Exam: Alert, Awake, CN II-XII Intact, Normal Gait - Psychiatric Exam Psychiatric exam: Normal Affect, Normal Mood Assessment and Plan - Assessment and Plan (Free Text) Plan: 46 yo m with pmhx of HTN, DM2, dyslipidemia, depression and anxiety presented with suicidal ideation Plan: Depression with suicidal ideation -managed by psychiatry -recommendations appreciated DM2 - Glipizide 10 mg, Metformin 1000, Levamir 10 u QHS -accuchecks -insulin medium dose ss -f/u hba1c Peripheral neuropathy -Gabapentin 300 TID Dyslipidemia -Atorvastatin 40 mg HTN -Lisinopril increased to 40, HCTZ 25 ; metoprolol 50 mg er; Amlodipine 10 mg Balanitis -Urology consulted: recommendations appreciated: Added Mycolog BID UA: GBS; possible contamination; no dysuria -f/u UCX Gluteal abces - L gluteal cleft measuring 1 cm x 1 cm. draining -started Bactrim DS DVT prophylaxis -pt ambulating -Lovenox 40 mg SQ -scd
--- NOTE | 2017-11-27 16:23 | PCM.PYCHPN ---
Psychiatric Progress Note - Psychiatric Progress Note Patient seen today, length of contact: pt seen and evaluate Patient Chief Complaint: pt has remained internally preoccupied and still withdrawn and depressed and hearing voices and remains with poor insight and need stabilization. Medication Change: Yes (increase risperdal to 1 mg hs) Mental Status Examination - Cognitive Function Orientation: Person, Place, Situation, Time Attention: Poor Concentration: Poor Association: WNL Fund of Knowledge: WNL - Mood Mood: Depressed - Affect Affect: Blunted, Depressed, Other (Irritable) - Formal Thought Process Formal Thought Process: Hallucinations - Suicidal Ideation Suicidal Ideation: No - Homicidal Ideation Homicidal Ideation: No Goal/Treatment Plan - Goal/Treatment Plan Progress Toward Problem(s) and Goals/Treatment Plan: will titrate risperdal to 1 mg hs to stabilize the psychosis and continue to encourage pt to engage in unit activities Disposition as per dr navarro.
[2017-11-27] MEDS: Tmp-Smz 800 mg-160 mg DS Tab PO SCH (21:08)
[2017-11-27] MEDS: Insulin Detemir 100 Units/ml Inj SC SCH (21:16)
[2017-11-28] MEDS: Tmp-Smz 800 mg-160 mg DS Tab PO SCH ×2 (08:46→21:23)
[2017-11-28] MEDS: Mycolog II OINT TOP SCH ×3 (08:47→18:14)
[2017-11-28] MEDS: Metoprolol Succinate 50 mg XL Tab PO SCH (08:49)
[2017-11-28] MEDS: Enoxaparin 40 mg Syringe SC SCH (08:50)
[2017-11-28] MEDS: Insulin Regular 100 units/ml SC SCH ×4 (08:54→21:27)
--- NOTE | 2017-11-28 11:41 | PCM.PYCHPN ---
Psychiatric Progress Note - Psychiatric Progress Note Patient seen today, length of contact: Patient evalauted, case discussed with team, chart reviewed Patient Chief Complaint: "I'm feeling better." Problems Identified/Issues Discussed: Patient reports that he wants to leave the hospital tomorrow. He reports that his mood is improving. He denies current AH. He reports that the Trazodone give him GI upset, so he would like to switch medication. We discussed starting Remeron. Medication Change: Yes (Stop Trazodone, start Remeron 15 mg PO HS) Medical Record Reviewed: Yes Consults ordered or reviewed: Medicine, Urology Mental Status Examination - Cognitive Function Orientation: Person, Place, Situation, Time Memory: Intact Attention: WNL Concentration: WNL Association: WNL Fund of Knowledge: WN Decription of patient's judgement and insights: Fair I/J - Mood Mood: Anxious - Affect Affect: Broad - Formal Thought Process Formal Thought Process: No Impairment Psychotic Thoughts and Behaviors: Denies acute AH - Suicidal Ideation Suicidal Ideation: No - Homicidal Ideation Homicidal Ideation: No Goal/Treatment Plan - Goal/Treatment Plan Need for Continued Stay: Discharge may exacerbated symptoms Progress Toward Problem(s) and Goals/Treatment Plan: Major Depressive Disorder w/ Psychotic Features -Risperdal 2 mg PO HS -Stop Trazodone, start Remeron 15 mg PO HS -Medicine consult -Urology consult -Individual and group therapy -Discharge tomorrow Estimated Date of D/C: 11/29/17
[2017-11-28 16:22] VITALS: RESP 18
[2017-11-28] MEDS: Insulin Detemir 100 Units/ml Inj SC SCH (21:25)
[2017-11-29 05:46] VITALS: BP 131/80; PULSE 91; TEMP 97.2
[2017-11-29 06:20] LABS: MEAN CELL VOLUME 89.4 fl (80.0-94.0); MEAN CORPUSCULAR HEMOGLOBIN 30.3 pg (27.0-31.0); MEAN CORPUSCULAR HGB CONC 33.9 g/dL (33.0-37.0); RBC 5.27 Mil/uL (4.40-5.90); RED CELL DISTRIBUTION WIDTH 14.4 % (11.5-14.5); WHITE BLOOD COUNT 7.6 K/uL (4.8-10.8)
[2017-11-29 06:26] LABS: BLOOD UREA NITROGEN 16 mg/dl (9-20); CALCIUM 9.3 mg/dL (8.4-10.2); GFR AFRICAN-AMERICAN > 60; GFR NON-AFRICAN AMERICAN > 60
[2017-11-29] MEDS: Tmp-Smz 800 mg-160 mg DS Tab PO SCH (08:49)
[2017-11-29] MEDS: Enoxaparin 40 mg Syringe SC SCH (08:54)
[2017-11-29] MEDS: Mycolog II OINT TOP SCH (08:57)
[2017-11-29] MEDS: Insulin Regular 100 units/ml SC SCH (08:58)
[2017-11-29] MEDS ORDERED: Metoprolol Succinate 50 mg XL Tab PO SCH (09:00)
--- NOTE | 2017-11-29 09:20 | PCM.PYCHDC ---
Mental Status Examination - Mental Status Examination Orientation: Person, Place, Situation, Time Memory: Intact Mood: Neutral Affect: Broad Speech: Appropriate Attention: WNL Concentration: WNL Association: WNL Fund of Knowledge: WNL Formal Thought Process: No Impairment Description of patient's judgement and insight: Fair I/J Psychotic Thoughts and Behaviors: NO AH/VH/paranoia/delusions Suicidal Ideation: No Current Homicidal Ideation?: No Discharge Summary - Discharge Note Reason for Hospitalization: HPI: 46 yo [place] male, presents to the ED w/ worsening depression, auditory hallucinations and passive suicidal ideation w/o plan or intent. He reports that his current social stressors, including poverty, lack of social support and homelessness make him feel depressed. He reports intermittent auditory hallucinations of noises, the telephone ringing or his name being called. + Anxiety. No current active SI/HI. No acute paranoia. PPHx: H/o psychiatric admission to [facility] (tx w/ Haldol, Trazdone, Cogentin and Gabapentin); no current compliant w/ medications; does not recall which medications he took in the past PMHx: Self reported h/o DM, HTN, Hemorrhoids; Now reporting burning, pain and bleeding when he urinated in addition to penile swelling and irritation ALL: NKDA SHx: Homeless, from [place]; h/o being detained by immigration from 01/22-09/25; denies current drug/etoh/cig use Laboratory Data: Abnormal Lab Results 11/28/17 11/28/17 11/28/17 12:03 15:13 20:01 WBC RBC Hgb Hct MCV MCH MCHC RDW Plt Count Sodium Potassium Chloride Carbon Dioxide Anion Gap BUN Creatinine Est GFR ( Amer) Est GFR (Non-Af Amer) POC Glucose (mg/dL) 197 H 166 H 189 H Random Glucose Calcium 11/29/17 11/29/17 11/29/17 05:30 05:30 05:43 WBC 7.6 RBC 5.27 Hgb 16.0 Hct 47.1 MCV 89.4 MCH 30.3 MCHC 33.9 RDW 14.4 Plt Count 216 Sodium 138 Potassium 4.2 Chloride 100 Carbon Dioxide 26 Anion Gap 16 BUN 16 Creatinine 0.9 Est GFR ( Amer) > 60 Est GFR (Non-Af Amer) > 60 POC Glucose (mg/dL) 153 H Random Glucose 165 H Calcium 9.3 Consultations:: List each consultation separately and include: 1. Reason for request. 2. Findings. 3. Follow-up Consultations: Medicine, Urology Summary of Hospital Course include:: 1. Description of specific treatment plan utilized for patients during their course of treatmen. 2. Summarize the time- course for resolution of acute symptoms and/or regressed behaviors. 3. Describe issues identified and worked on during hospitalization. 4. Describe medication utilized. 5. Describe medical problems identified and treated. 6. Reassessment of suicide risk Summary of Hospital Course: Patient was admitted to the psychiatry unit. Individual and group therapy were provided. Psychoeducation provided on the importance of compliance with treatment and medications. Patient was stabilized on Remeron and Risperdal. He is psychiatrically stable for discharge with outpatient follow-up. - Diagnosis (1) Major depressive disorder with psychotic features Current Visit: Yes Status: Resolved - Final Diagnosis (DSM 5) Condition upon Discharge: STABLE DSM 5: Major Depressive Disorder w/ Psychotic Features Disposition: HOME/ ROUTINE Follow-up Treatment Plan: Major Depressive Disorder w/ Psychotic Features -Risperdal 2 mg PO HS -Remeron 15 mg PO HS -Medicine consult -Urology consult -Individual and group therapy Prescriptions/Medication Reconciliation: Alogliptin Benzoate [Alogliptin] 25 mg PO DAILY #30 tablet amLODIPine [Norvasc] 10 mg PO DAILY #30 tab Atorvastatin [Lipitor] 40 mg PO DAILY #30 tab Gabapentin [Neurontin] 300 mg PO TID #90 cap GlipiZIDE [Glucotrol] 10 mg PO ACB #30 tab hydroCHLOROthiazide [Hydrodiuril] 25 mg PO DAILY #30 tab Insulin Glargine,Hum.rec.anlog [Lantus Solostar] 20 unit SQ HS #1 insuln.pen Lisinopril [Zestril] 40 mg PO DAILY #30 tab MetFORMIN [glucoPHAGE] 1,000 mg PO BIDWM #60 tab Metoprolol Succinate [Toprol XL] 50 mg PO DAILY #30 tab Mirtazapine [Remeron] 15 mg PO HS #30 tab Nystatin/Triamcinolone Acetoni [Mycolog II OINT] 1 applic TOP TID #1 tube risperiDONE [RisperDAL Tab] 2 mg PO HS #30 tab Sulfamethoxazole/Trimethoprim [Bactrim DS Tab] 1 tab PO Q12 13 Days #36 tab - Smoking Cessation Smoking Cessation Medication prescribed: No Reason for not providing: Not indicated - Antipsychotic Medications Pt discharged on 2 or more routine antipsychotic medications: No
== END 2017-11-29 10:05 | disposition home or self-care (01) | DRG 430 ==
LOC: H.ER 15:19 → H.ERHOLD 20:04 → H.STEP 11-25 00:10
PROVIDERS: ADMIT Psychiatry & Neurology Psychiatry; ATTEND Psychiatry & Neurology Psychiatry
PROC: GZHZZZZ Group Psychotherapy (ICD-10-PCS; principal; 2017-11-24)
DX: F32.3 Major depressive disorder, single episode, severe with psychotic features (principal); E11.65 Type 2 diabetes mellitus with hyperglycemia; L02.31 Cutaneous abscess of buttock; E11.42 Type 2 diabetes mellitus with diabetic polyneuropathy; I10 Essential (primary) hypertension; E78.00 Pure hypercholesterolemia, unspecified; R45.851 Suicidal ideations; N48.1 Balanitis; Z59.0 Homelessness; R30.0 Dysuria; E78.5 Hyperlipidemia, unspecified; Z91.14 Patient's other noncompliance with medication regimen; F41.9 Anxiety disorder, unspecified

== ENCOUNTER 2018-06-01 10:40 | Inpatient (IN) | payer MEDICAID ==
[2018-06-01 10:46] VITALS: BMI 33.0
[2018-06-01 13:43] LABS: BASO % 0.6 % (0.0-2.0); EOS # 0.1 K/uL (0.0-0.7); EOS % 1.6 % (0.0-4.0); HEMOGLOBIN 15.1 g/dL (12.0-18.0); LYMPH # 2.6 K/uL (1.0-4.3); LYMPH % 34.6 % (20.0-40.0); MEAN CELL VOLUME 88.8 fl (80.0-94.0); MEAN CORPUSCULAR HEMOGLOBIN 31.2 pg (27.0-31.0); MEAN CORPUSCULAR HGB CONC 35.2 g/dL (33.0-37.0); MEAN PLATELET VOLUME 8.3 fl (7.2-11.7); MONO # 0.7 K/uL (0.0-0.8); MONO % 8.9 % (0.0-10.0); NEUT # 4.1 K/uL (1.8-7.0); NEUT % 54.3 % (50.0-75.0); NRBC % 0.1 % (0.0-0.0); RBC 4.83 Mil/uL (4.40-5.90); RED CELL DISTRIBUTION WIDTH 12.5 % (11.5-14.5); WHITE BLOOD COUNT 7.6 K/uL (4.8-10.8)
[2018-06-01 13:49] LABS: ALB/GLOB RATIO 1.2 (1.0-2.1); ALBUMIN 4.2 g/dL (3.5-5.0); ALT/SGPT 138 U/L (21-72); AST/SGOT 99 U/L (17-59); BLOOD UREA NITROGEN 8 mg/dl (9-20); CALCIUM 9.3 mg/dL (8.4-10.2); GFR NON-AFRICAN AMERICAN > 60
[2018-06-01 15:16] LABS: SQUAMOUS EPITHIAL 1 /hpf (0-5); URINE BILIRUBIN NEGATIVE (NEGATIVE); URINE BLOOD NEGATIVE (NEGATIVE); URINE CLARITY CLEAR (Clear); URINE COLOR YELLOW (YELLOW); URINE GLUCOSE (UA) >=500 mg/dL (Normal); URINE LEUKOCYTE ESTERASE NEG Leu/uL (Negative); URINE PROTEIN NEGATIVE (NEGATIVE); URINE UROBILINOGEN 0.2-1.0 mg/dL (0.2-1.0)
[2018-06-01 15:22] LABS: BENZODIAZEPINES, UR NEGATIVE (NEGATIVE)
[2018-06-01 15:30] LABS: BARBITURATES, UR NEGATIVE (NEGATIVE); OPIATES, UR NEGATIVE (NEGATIVE); PHENCYCLIDINE, UR NEGATIVE (NEGATIVE)
[2018-06-01] MEDS ORDERED: Sodium Chloride 0.9% 1,000 ML IV STA (16:55)
[2018-06-01] MEDS ORDERED: Insulin Regular 100 units/ml IV STA (16:55)
--- NOTE | 2018-06-01 18:36 | ED PDOC ---
Lower Extremity Pain/Injury Time Seen by Provider: 06/01/18 10:46 Chief Complaint (Nursing): Lower Extremity Problem/Injury Chief Complaint (Provider): Ecchymosis right innder leg History Per: Patient History/Exam Limitations: no limitations Onset/Duration Of Symptoms: Days (1) Current Symptoms Are (Timing): Still Present Additional Complaint(s): 47 yo male with history of DM and schizophrenia presents for evaluation of bruising on the right inner leg. Pt states he has some soreness in right inner thigh for 3 days. Pt states he noticed bruising today. Pt denies trauma. Pt states that he also has not been taking his DM medication because he does not want to live anymore. Pt states he also has been hearing voices the last few days. Past Medical History Reviewed: Historical Data, Nursing Documentation, Vital Signs Vital Signs: Last Vital Signs Temp 97 F L 06/01/18 10:56 Pulse 98 H 06/01/18 10:56 Resp 18 06/01/18 10:56 BP 172/101 H 06/01/18 10:56 Pulse Ox 97 06/01/18 10:56 - Medical History PMH: Anxiety, Depression, HTN, Hypercholesterolemia Denies: Diabetes, Hepatitis, HIV, Chronic Kidney Disease, Seizures, Sexually Transmitted Disease - Surgical History Surgical History: No Surg Hx - Family History Family History: States: Unknown Family Hx - Immunization History Hx Tetanus Toxoid Vaccination: Yes (10/31/15) - Home Medications Home Medications: Ambulatory Orders Medication Instructions Recorded GlipiZIDE [Glucotrol] 10 mg PO DAILY 06/01/18 Insulin Glargine,Hum.rec.anlog 20 unit SC HS 06/01/18 [Basaglar Kwikpen U-100] Lisinopril [Zestril] 40 mg PO DAILY 06/01/18 MetFORMIN [glucoPHAGE] 1,000 mg PO BID 06/01/18 Metoprolol Succinate XL [Toprol XL] 50 mg PO DAILY 06/01/18 amLODIPine [Norvasc] 10 mg PO DAILY 06/01/18 hydroCHLOROthiazide [Hydrodiuril] 25 mg PO DAILY 06/01/18 - Allergies Allergies/Adverse Reactions: Allergies Allergy/AdvReac Type Severity Reaction Status Date / Time No Known Allergies Allergy Verified 06/01/18 10:55 Review of Systems ROS Statement: Except As Marked, All Systems Reviewed And Found Negative Constitutional: Negative for: Fever, Chills Skin: Positive for: Bruising Psych: Positive for: Depression, Psychosis, Suicidal ideation, Withdrawal Physical Exam - Reviewed Nursing Documentation Reviewed: Yes Vital Signs Reviewed: Yes - Physical Exam Appears: Positive for: Well, Non-toxic, No Acute Distress Head Exam: Positive for: ATRAUMATIC, NORMAL INSPECTION, NORMOCEPHALIC Skin: Positive for: Normal Color, Warm, DRY Eye Exam: Positive for: Normal appearance ENT: Positive for: Normal ENT Inspection Neck: Positive for: Normal, Painless ROM Cardiovascular/Chest: Positive for: Regular Rate, Rhythm Respiratory: Positive for: Normal Breath Sounds. Negative for: Accessory Muscle Use, Respiratory Distress Gastrointestinal/Abdominal: Positive for: Normal Exam, Soft. Negative for: Tenderness Back: Positive for: Normal Inspection Extremity: Positive for: Normal ROM Neurologic/Psych: Positive for: Alert, Oriented - Laboratory Results Result Diagrams: 06/01/18 13:15 06/01/18 13:15 - ECG O2 Sat by Pulse Oximetry: 97 Medical Decision Making Medical Decision Making: Crisis evaluation completed. Admission pending glucose control. Pt feed in ER prior to control of glucose. IV fluids and insulin ordered. Disposition - Clinical Impression Clinical Impression: Schizoaffective disorder, depressive type - Patient ED Disposition Is Patient to be Admitted: Yes - Disposition Disposition Time: 19:55 Condition: GOOD Instructions: Schizoaffective Disorder (DC) Forms: [id number] (Azeri) - Pt Status Changed To: Hospital Disposition Of: Inpatient - Admit Certification Admit to Inpatient:: After my assessment, the patient will require hospitalization for at least two midnights. This is because of the severity of symptoms shown, intensity of services needed, and/or the medical risk in this patient being treated as an outpatient.
[2018-06-01] MEDS ORDERED: Insulin Regular 100 units/ml SC STA (19:54)
[2018-06-01] MEDS ORDERED: metroNIDAZOLE 500mg/100ml NS 100 ML IVPB ONE (19:58)
[2018-06-01] MEDS ORDERED: Insulin Regular 100 units/ml ONE (19:58)
[2018-06-01 22:52] VITALS: O2SAT 99
[2018-06-01] MEDS ORDERED: Magnesium Hydroxide Susp 30 ml UD PO PRN (23:12)
[2018-06-01] MEDS ORDERED: DiphenhydrAMINE 50 mg/ml Inj IM PRN (23:12)
--- NOTE | 2018-06-01 23:39 | PCM.BM ---
<Michelle Christianson P - Last Filed: 06/01/18 23:37> Treatment Plan Problems - Problems identified on initial assessmt Auditory Hallucinations Date Initiated: 06/01/18 Time Initiated: 23:37 Assessment reference: NA Status: Active Impaired Communication Date Initiated: 06/01/18 Time Initiated: 23:37 Assessment reference: NA Status: Active Medication nonadherence Date Initiated: 06/01/18 Time Initiated: 23:38 Assessment reference: NA Status: Active Treatment assets and liabiliti Patient Assests: adapts well, cooperative, self-reliant, ADL independent, negotiates basic needs, cognitively intact Patient Liabilities: live alone, financial problems, poor support system, substance abuse, medical problems, language/speech - Milieu Protocol Maintain good personal hygiene: daily Encourage regular showers, daily Remind patient to perform daily oral care, daily Assist patient to perform ADL's Conduct patient checks and document Observation sheet: Q15 minutes Maintain personal safety: every shift Educate patient to report safety concerns to staff, every shift Monitor environment for contraband/sharps Medication safety: Monitor for expected outcome, potential side effects: every shift, Assess barriers to learning: every shift, Assess readiness for medication education: every shift <Umer You J - Last Filed: 06/04/18 17:36> Family Contact Family involvement: Famliy/SO not involved Family contact: Patient declines to allow family contact at present Family contact name: Pt denied. - Goals for Treatment Patient goals for treatment: Pt could not offer any goals. Discharge/Continuing Care - Education Needs Education Needs: Patient Medication, Patient Diagnosis/Disease Process, Patient Coping Skills, Patient Anger Management skills, Patient Aftercare Safety Plan - Discharge Discharge Criteria: Tolerates medication w/o severe side effects, Free of Suicidal thoughts, Free of paranoid thoughts, Free of agitation, Normal sleep pattern, Ability to care for self, Reduction of target symptoms Discharge to:: Home - Treatment Team Participation Discussed with Family/SO: No Was Patient/Family/SO present at Treatment Team Meeting: Yes <Genet De Leon - Last Filed: 06/05/18 12:09> - Diagnosis (1) Depression Status: Acute Interventions: psychotherapy, pharmacotherapy 06/05/18 12:08
[2018-06-02 08:56] LABS: T4 7.48 ug/dl (5.5-11.0)
[2018-06-02] MEDS: Metoprolol Succinate 50 mg XL Tab PO SCH (09:45)
[2018-06-02] MEDS: Insulin Regular 100 units/ml SC SCH ×4 (09:48→23:18)
--- NOTE | 2018-06-02 13:07 | PCM.PSYCH ---
Initial Psychiatric Evaluation - Initial Psychiatric Evaluation Type of Admission: Voluntary Legal Status: Capacity Chief Complaint (in patient's own words): I have no body and I am tired of living History of Present Illness and Precipitating Events: pt is a 46 yo [place] male,with previous psychiatric diagnosis of major depression, non compliant with medications or follow up for past three months presents to the ED w/ worsening depression, auditory hallucinations and suicidal ideation with plan to hang himself He reports that his current stressors include poverty, lack of social support with poor relation with his daughter and homelessness , he reported poor sleep, poor energy, lack of interest and motivation , poor compliance with medications for diabetes , increased irritability and anxiety . He reports intermittent auditory hallucinations of unidentified noises denied command hallucinations, denied active suicide plan on the unit, denied homicidal ideation hx of cocaine and cannabis abuse Current Medications: Active Medications Generic Name Dose Route Start Last Admin Trade Name Freq PRN Reason Stop Dose Admin Acetaminophen 650 mg 06/01/18 23:12 06/02/18 11:09 Tylenol 325mg Tab PO 650 mg Q4 PRN Administration pain level 4-7 Al Hydrox/Mg Hydrox/Simethicone 30 ml 06/01/18 23:12 Maalox Plus 30 Ml PO Q4 PRN Dyspepsia Diphenhydramine HCl 50 mg 06/01/18 23:12 Benadryl IM Q6 PRN Extrapyramidal S/S Unable PO Diphenhydramine HCl 50 mg 06/01/18 23:12 Benadryl PO Q6 PRN Extrapyramidal Symptoms Diphenhydramine HCl 50 mg 06/01/18 23:19 Benadryl PO HS PRN Sleep Glipizide 10 mg 06/02/18 09:00 06/02/18 09:45 Glucotrol PO 10 mg DAILY SHELLEY Administration Haloperidol 5 mg 06/01/18 23:12 Haldol PO Q4 PRN Agitation Haloperidol Lactate 5 mg 06/01/18 23:12 Haldol IM Q4 PRN Agitation, Unable to Take PO Insulin Human Regular 0 units 06/02/18 07:30 06/02/18 09:48 Humulin R SC 4 u ACHS SHELELY Administration Protocol Lorazepam 1 mg 06/01/18 23:12 Ativan IM Q8H PRN Anxiety/Agitation,Unable PO Lorazepam 1 mg 06/01/18 23:12 Ativan PO Q8H PRN Anxiety/Agitation Magnesium Hydroxide 30 ml 06/01/18 23:12 Milk Of Magnesia PO HS PRN Constipation Metformin HCl 1,000 mg 06/02/18 09:00 06/02/18 09:46 Glucophage PO 1,000 mg BIDWM SHELLEY Administration Metoprolol Succinate 50 mg 06/02/18 09:00 06/02/18 09:45 Toprol Xl PO 50 mg DAILY SHELLEY Administration Past Psychiatric History - Past Psychiatric History Explanation of prior treatment: three inpatient hospitalizations, history of non compliance History of ETOH/Drug Use: hx of cocaine and cannabis use Pertinent Medical Hx (Current Medical&Sleep Prob, Allergies): Allergies Allergy/AdvReac Type Severity Reaction Status Date / Time No Known Allergies Allergy Verified 06/01/18 10:55 GlipiZIDE [Glucotrol] 10 mg PO DAILY 06/01/18 Insulin Glargine,Hum.rec.anlog [Basaglar Kwikpen U-100] 20 unit SC HS 06/01/18 Lisinopril [Zestril] 40 mg PO DAILY 06/01/18 MetFORMIN [glucoPHAGE] 1,000 mg PO BID 06/01/18 Metoprolol Succinate XL [Toprol XL] 50 mg PO DAILY 06/01/18 amLODIPine [Norvasc] 10 mg PO DAILY 06/01/18 hydroCHLOROthiazide [Hydrodiuril] 25 mg PO DAILY 06/01/18 Mental Status Examination - Personal Presentation Personal Presentation: Looks older than stated age - Affect Affect: Constricted, Depressed - Motor Activity Motor Activity: Psychomotor Retardation - Reliability in Providing Information Reliability in Providing Information: Poor, due to altered mood - Speech Speech: Tangential - Mood Mood: Depressed, Anxious - Formal Thought Process Formal Thought Process: Circumstantial - Hallucinations/Delusions Hallucinations: Auditory - Obsessions/Compulsions Obsessions: No Compulsions: No - Cognitive Functions Orientation: Person Attention/Concentration: Easily distracted Abstract Thinking: Dexter Judgement: Imparied, as evidence by: Poor judgement, Imparied, as evidence by: Lack of insight into illness - Strength & Assets Inventory Strength & Assets Inventory: Life experience - Limitations Additional comments: poor compliance DSM 5 DX - DSM 5 DSM 5 Diagnosis: major depression recurrent severe with psychotic features cocaine abuse cannabis abuse - Recommended/Plan of Treatment Treatment Recommendations and Plan of Treatment: start zoloft 25mg daily start risperidone 1mg qhs start trazodone 100mg qhs CBT , motivational and group therapy internal medicine consult for diabetes disposition planning
--- NOTE | 2018-06-02 15:05 | CP.PCM.HP ---
History of Present Illness - History of Present Illness History of Present Illness: Reason for consult: per hospital protocol HPI: 47 year old male PMH DM HTN admitted to psych for suicidal ideation. ROS: per HPI all othersystems reviewed and neg Present on Admission - Present on Admission Any Indicators Present on Admission: No Past Patient History - Past Medical History & Family History Past Medical History?: Yes - Past Social History Smoking Status: Unknown If Ever Smoked - CARDIAC Hx Hypercholesterolemia: Yes Hx Hypertension: Yes - PULMONARY Hx Tuberculosis: No - NEUROLOGICAL Hx Seizures: No - HEENT Hx HEENT Problems: No - RENAL Hx Chronic Kidney Disease: No - ENDOCRINE/METABOLIC Hx Endocrine Disorders: Yes Hx Diabetes Mellitus Type 2: Yes - HEMATOLOGICAL/ONCOLOGICAL Hx Human Immunodeficiency Virus (HIV): No - INTEGUMENTARY Hx Dermatological Problems: No - MUSCULOSKELETAL/RHEUMATOLOGICAL Hx Musculoskeletal Disorders: No Hx Falls: No - GASTROINTESTINAL Hx Gastrointestinal Disorders: No - GENITOURINARY/GYNECOLOGICAL Hx Sexually Transmitted Disorders: No - PSYCHIATRIC Hx Substance Use: Yes - SURGICAL HISTORY Hx Surgeries: No - ANESTHESIA Hx Anesthesia: No Meds Allergies/Adverse Reactions: Allergies Allergy/AdvReac Type Severity Reaction Status Date / Time No Known Allergies Allergy Verified 06/01/18 10:55 Physical Exam - Constitutional Additional comments: GEN: WDWN, ALERT, COOPERATIVE HEENT: NCAT, PERRL, EOMI HEART: +S1+S2, RRR NO MRG LUNG: CTAB, NO WRR ABD: SOFT BSX4 NT ND NO HSM NO MASS EXT: WARM, WELL PERFUSED NEURO: AWAKE, ALERT, REFLEXES NORMAL SKIN: WARM DRY PSYCH: NORMAL MOOD NORMAL AFFECT Results - Vital Signs Recent Vital Signs: Last Vital Signs Temp 97.2 F L 06/02/18 09:00 Pulse 74 06/02/18 09:45 Resp 18 06/02/18 09:00 BP 137/86 06/02/18 09:45 Pulse Ox 99 06/01/18 22:27 - Labs Result Diagrams: 06/01/18 13:15 06/01/18 13:15 Labs: Laboratory Results - last 24 hr 06/01/18 06/01/18 06/01/18 14:43 14:50 16:54 POC Glucose (mg/dL) 339 H Hemoglobin A1c Triglycerides Cholesterol LDL Cholesterol Direct HDL Cholesterol Thyroxine (T4) TSH 3rd Generation Urine Color Yellow Urine Clarity Clear Urine pH 7.0 Ur Specific [place] 1.032 H Urine Protein Negative Urine Glucose (UA) >=500 Urine Ketones Trace Urine Blood Negative Urine Nitrate Negative Urine Bilirubin Negative Urine Urobilinogen 0.2-1.0 Ur Leukocyte Esterase Neg Urine Microscopic WBC < 1 Ur Squamous Epith Cells 1 Urine Opiates Screen Negative Urine Methadone Screen Negative Ur Barbiturates Screen Negative Ur Phencyclidine Scrn Negative Ur Amphetamines Screen Negative U Benzodiazepines Scrn Negative U Oth Cocaine Metabols Positive H U Cannabinoids Screen Negative 06/01/18 06/01/18 06/02/18 19:22 21:13 06:18 POC Glucose (mg/dL) 306 H 269 H 295 H Hemoglobin A1c Triglycerides Cholesterol LDL Cholesterol Direct HDL Cholesterol Thyroxine (T4) TSH 3rd Generation Urine Color Urine Clarity Urine pH Ur Specific [place] Urine Protein Urine Glucose (UA) Urine Ketones Urine Blood Urine Nitrate Urine Bilirubin Urine Urobilinogen Ur Leukocyte Esterase Urine Microscopic WBC Ur Squamous Epith Cells Urine Opiates Screen Urine Methadone Screen Ur Barbiturates Screen Ur Phencyclidine Scrn Ur Amphetamines Screen U Benzodiazepines Scrn U Oth Cocaine Metabols U Cannabinoids Screen 06/02/18 06/02/18 08:18 08:18 POC Glucose (mg/dL) Hemoglobin A1c 13.0 H D Triglycerides 126 D Cholesterol 223 H LDL Cholesterol Direct 163 H HDL Cholesterol 51 Thyroxine (T4) 7.48 TSH 3rd Generation 1.11 Urine Color Urine Clarity Urine pH Ur Specific [place] Urine Protein Urine Glucose (UA) Urine Ketones Urine Blood Urine Nitrate Urine Bilirubin Urine Urobilinogen Ur Leukocyte Esterase Urine Microscopic WBC Ur Squamous Epith Cells Urine Opiates Screen Urine Methadone Screen Ur Barbiturates Screen Ur Phencyclidine Scrn Ur Amphetamines Screen U Benzodiazepines Scrn U Oth Cocaine Metabols U Cannabinoids Screen Assessment & Plan - Assessment and Plan (Free Text) Plan: DM HTN continue accuchecks - ISS, oral antihypoglycemics continue all antihypertensives per home meds
[2018-06-02] MEDS: Alum-Mag Hydrox-Simethicone Susp (30 mL) PO PRN ×2 (17:49→21:12)
[2018-06-03] MEDS: Metoprolol Succinate 50 mg XL Tab PO SCH (09:12)
[2018-06-03] MEDS: Insulin Regular 100 units/ml SC SCH ×4 (09:18→21:27)
--- NOTE | 2018-06-03 10:04 | PCM.PYCHPN ---
Psychiatric Progress Note - Psychiatric Progress Note Patient seen today, length of contact: Pt evaluated, case discussed with team, chart reviewed Patient Chief Complaint: "I'm depressed." Problems Identified/Issues Discussed: Patient continues to report feeling depressed and anxious. He reports that he is not sure if it was a dream, but he woke up frightened that someone was going to attack him. He reports poor energy and motivation. He reports that he heard voices last night talking to each others and sometimes the voices say "come, come" to him. We discussed continued titration of Zoloft and Risperdal and the importance of compliance with treatment and medications. Medication Change: Yes (Titrate Risperdal) Medical Record Reviewed: Yes Consults ordered or reviewed: Medicine consult Mental Status Examination - Cognitive Function Orientation: Person, Place, Situation, Time Memory: Intact Attention: WNL Concentration: WNL Association: WNL Fund of Knowledge: [facility] Decription of patient's judgement and insights: Poor I/J - Mood Mood: Depressed, Anxious - Affect Affect: Constricted, Depressed - Speech Speech: Appropriate - Formal Thought Process Formal Thought Process: Paranoia, Circumstantial Psychotic Thoughts and Behaviors: Denies current AH, but reports hearing them last night - Suicidal Ideation Suicidal Ideation: No - Homicidal Ideation Homicidal Ideation: No Goal/Treatment Plan - Goal/Treatment Plan Need for Continued Stay: Remain at risks for inpatient hospitalization, Severe depression anxiety, Discharge may exacerbated symptoms Progress Toward Problem(s) and Goals/Treatment Plan: Major Depressive Disorder w/ Psychotic Features; Cocaine Abuse -Titrate Risperdal to 2 mg PO HS -Titrate Zoloft to 50 mg PO Daily starting tomorrow AM -Continue Trazodone 100 mg PO HS -Individual and group therapy -Psychoeducation -Medicine consult -Disposition planning Estimated Date of D/C: 06/08/18
[2018-06-03] MEDS: Alum-Mag Hydrox-Simethicone Susp (30 mL) PO PRN (21:27)
[2018-06-04] MEDS: Metoprolol Succinate 50 mg XL Tab PO SCH (09:10)
[2018-06-04] MEDS: Insulin Regular 100 units/ml SC SCH ×4 (09:13→21:05)
--- NOTE | 2018-06-04 10:33 | PCM.PYCHPN ---
Psychiatric Progress Note - Psychiatric Progress Note Patient seen today, length of contact: Pt evaluated, case discussed with team, chart reviewed Patient Chief Complaint: "I'm depressed." Problems Identified/Issues Discussed: Patient continues to report feeling depressed and tired. He reports poor sleep at night. He denies acute AH/VH/SI/HI. He reports that he felt in danger in the streets, but denies acutely feeling paranoid about anyone in the hospital. Medication Change: Yes (Increase Zoloft) Medical Record Reviewed: Yes Consults ordered or reviewed: Medicine consult Mental Status Examination - Cognitive Function Orientation: Person, Place, Situation, Time Memory: Intact Attention: WNL Concentration: WNL Association: WNL Fund of Knowledge: [facility] [place] Decription of patient's judgement and insights: Poor I/J - Mood Mood: Depressed, Anxious - Affect Affect: Constricted, Depressed - Speech Speech: Appropriate - Formal Thought Process Formal Thought Process: Circumstantial Psychotic Thoughts and Behaviors: Denies acute AH/paranoia - Suicidal Ideation Suicidal Ideation: No - Homicidal Ideation Homicidal Ideation: No Goal/Treatment Plan - Goal/Treatment Plan Need for Continued Stay: Severe depression anxiety, Discharge may exacerbated symptoms Progress Toward Problem(s) and Goals/Treatment Plan: Major Depressive Disorder w/ Psychotic Features; Cocaine Abuse -Continue Risperdal 2 mg PO HS -Titrate Zoloft to 50 mg PO Daily -Continue Trazodone 100 mg PO HS -Individual and group therapy -Psychoeducation -Medicine consult -Disposition planning Estimated Date of D/C: 06/08/18
[2018-06-05] MEDS: Insulin Regular 100 units/ml SC SCH ×4 (08:30→21:07)
[2018-06-05] MEDS: Metoprolol Succinate 50 mg XL Tab PO SCH (08:31)
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
[2018-06-05] MEDS: Alum-Mag Hydrox-Simethicone Susp (30 mL) PO PRN (19:29)
[2018-06-06] MEDS: Insulin Regular 100 units/ml SC SCH ×4 (08:48→21:06)
[2018-06-06] MEDS: Metoprolol Succinate 50 mg XL Tab PO SCH (08:50)
--- NOTE | 2018-06-06 15:29 | PCM.PYCHPN ---
Psychiatric Progress Note - Psychiatric Progress Note Patient seen today, length of contact: Pt evaluated, case discussed with team, chart reviewed Patient Chief Complaint: I still feel down and it is hard to sleep Problems Identified/Issues Discussed: pt evaluated continues to present with depressed mood and affect, reported poor sleep with early insomnia, discussed increasing dose of zoloft and trazodone, no reported side effects, pt continues to isolate himself in his room, encouraged to attend groups and participate in treatment continues to report passive suicidal ideation without active plan, denied command hallucinations, denied homicidal ideation Medical Problems: three inpatient hospitalizations, history of non compliance DSM 5 Symptoms Update: major depression cannabis abuse cocaine abuse Medication Change: Yes (Increase Zoloft) Medical Record Reviewed: Yes Mental Status Examination - Cognitive Function Orientation: Person, Place, Situation, Time Memory: Intact Attention: WNL Concentration: WNL Association: WNL Fund of Knowledge: WNL - Mood Mood: Depressed, Anxious - Affect Affect: Constricted, Depressed - Speech Speech: Appropriate - Formal Thought Process Formal Thought Process: Circumstantial - Suicidal Ideation Suicidal Ideation: No - Homicidal Ideation Homicidal Ideation: No Goal/Treatment Plan - Goal/Treatment Plan Need for Continued Stay: Severe depression anxiety, Discharge may exacerbated symptoms Progress Toward Problem(s) and Goals/Treatment Plan: increase zoloft 100 mg daily risperidone 2mg qhs trazodone 200mg qhs CBT , motivational and group therapy disposition planning Estimated Date of D/C: 06/08/18
[2018-06-07] MEDS: Metoprolol Succinate 50 mg XL Tab PO SCH (09:12)
[2018-06-07] MEDS: Insulin Regular 100 units/ml SC SCH ×4 (09:19→21:13)
--- NOTE | 2018-06-07 14:17 | PCM.PYCHPN ---
Psychiatric Progress Note - Psychiatric Progress Note Patient seen today, length of contact: Pt evaluated, case discussed with team, chart reviewed Patient Chief Complaint: I slept a little better Problems Identified/Issues Discussed: pt evaluated , reported improved sleep, less isolative ,seen more visible in day room, improved sleep with increase in trazodone, no reported side effects, denied side effects of medications with increase in zoloft, denied current suicidal ideation, denied perceptual disturbances, more stable mood and affect c Medical Problems: three inpatient hospitalizations, history of non compliance DSM 5 Symptoms Update: major depression cocaine use disorder cannabis use disorder Medication Change: No Medical Record Reviewed: Yes Mental Status Examination - Cognitive Function Orientation: Person, Place, Situation, Time Memory: Intact Attention: WNL Concentration: WNL Association: WNL Fund of Knowledge: WNL - Mood Mood: Depressed, Anxious - Affect Affect: Constricted, Depressed - Speech Speech: Appropriate - Formal Thought Process Formal Thought Process: Circumstantial - Suicidal Ideation Suicidal Ideation: No - Homicidal Ideation Homicidal Ideation: No Goal/Treatment Plan - Goal/Treatment Plan Need for Continued Stay: Severe depression anxiety, Discharge may exacerbated symptoms Progress Toward Problem(s) and Goals/Treatment Plan: zoloft 100 mg daily risperidone 2mg qhs trazodone 200mg qhs CBT , motivational and group therapy disposition planning Estimated Date of D/C: 06/08/18
[2018-06-08] MEDS: Insulin Regular 100 units/ml SC SCH ×4 (09:11→21:02)
[2018-06-08] MEDS: Metoprolol Succinate 50 mg XL Tab PO SCH (09:34)
--- NOTE | 2018-06-08 15:09 | PCM.PYCHPN ---
Psychiatric Progress Note - Psychiatric Progress Note Patient seen today, length of contact: Pt evaluated, case discussed with team, chart reviewed Patient Chief Complaint: I feel better but anxious Problems Identified/Issues Discussed: pt evaluated , seen in day room,reported improved sleep , better mood , brighter affect ne, no reported side effects, denied side effects of medications with increase in zoloft, denied current suicidal ideation, denied perceptual disturbances, , motivational therapy provided in reference to effect of cocaine use on mental status, cbt provided , c Medical Problems: three inpatient hospitalizations, history of non compliance DSM 5 Symptoms Update: major depression cocaine use disorder cannabis use disorder Medication Change: No Medical Record Reviewed: Yes Mental Status Examination - Cognitive Function Orientation: Person, Place, Situation, Time Memory: Intact Attention: WNL Concentration: WNL Association: WNL Fund of Knowledge: WNL - Mood Mood: Depressed, Anxious - Affect Affect: Constricted, Depressed - Speech Speech: Appropriate - Formal Thought Process Formal Thought Process: Circumstantial - Suicidal Ideation Suicidal Ideation: No - Homicidal Ideation Homicidal Ideation: No Goal/Treatment Plan - Goal/Treatment Plan Need for Continued Stay: Severe depression anxiety, Discharge may exacerbated symptoms Progress Toward Problem(s) and Goals/Treatment Plan: zoloft 100 mg daily risperidone 2mg qhs trazodone 200mg qhs CBT , motivational and group therapy disposition planning Estimated Date of D/C: 06/08/18
[2018-06-09] MEDS: Insulin Regular 100 units/ml SC SCH ×2 (08:09→11:57)
[2018-06-09] MEDS: Metoprolol Succinate 50 mg XL Tab PO SCH (08:42)
[2018-06-09 08:44] VITALS: BP 127/77
[2018-06-09 09:22] VITALS: PULSE 75; RESP 17; TEMP 96.5
--- NOTE | 2018-06-09 13:16 | PCM.PYCHDC ---
Mental Status Examination - Mental Status Examination Orientation: Person, Place, Situation Memory: Intact Mood: Neutral Affect: Broad Speech: Appropriate Attention: WNL Concentration: WNL Association: WNL Fund of Knowledge: WNL Formal Thought Process: No Impairment Description of patient's judgement and insight: PARTIAL INSIGHT , FAIR JUDGMENT Psychotic Thoughts and Behaviors: PT ON DISCHARGE DENIED PSYCHOTIC SYMPTOMS NON ELICITED Suicidal Ideation: No Current Homicidal Ideation?: No Discharge Summary - Discharge Note Reason for Hospitalization: pt is a 46 yo [place] male,with previous psychiatric diagnosis of major depression, non compliant with medications or follow up for past three months presents to the ED w/ worsening depression, auditory hallucinations and suicidal ideation with plan to hang himself He reports that his current stressors include poverty, lack of social support with poor relation with his daughter and homelessness , he reported poor sleep, poor energy, lack of interest and motivation , poor compliance with medications for diabetes , increased irritability and anxiety . He reports intermittent auditory hallucinations of unidentified noises denied command hallucinations, denied active suicide plan on the unit, denied homicidal ideation hx of cocaine and cannabis abuse Laboratory Data: Abnormal Lab Results 06/08/18 06/08/18 06/09/18 16:51 19:49 06:03 POC Glucose (mg/dL) 234 H 336 H 211 H 06/09/18 11:49 POC Glucose (mg/dL) 312 H Consultations:: List each consultation separately and include: 1. Reason for request. 2. Findings. 3. Follow-up Summary of Hospital Course include:: 1. Description of specific treatment plan utilized for patients during their course of treatmen. 2. Summarize the time- course for resolution of acute symptoms and/or regressed behaviors. 3. Describe issues identified and worked on during hospitalization. 4. Describe medication utilized. 5. Describe medical problems identified and treated. 6. Reassessment of suicide risk Summary of Hospital Course: pt ON ADMISSION PRESENTED WITH DEPRESSED MOOD AND AFFECT AND NON COMMAND AUDITORY HALLUCINATIONS pt was started on zoloft and risperidone motivational therapy was provided in reference to cocaine and cannabis use pt was compliant with treatment, no reported side effects on discharge mental status was stable, pt denied suicidal or homicidal ideation, denied perceptual disturbances - Diagnosis (1) Depression Current Visit: No Status: Acute - Final Diagnosis (DSM 5) Condition upon Discharge: GOOD DSM 5: major depression cocaine induced psychotic disorder cocaine abuse cannabis abuse post traumatic stress disorder Disposition: HOME/ ROUTINE Prescriptions/Medication Reconciliation: GlipiZIDE [Glipizide] 10 mg PO BID #60 tab MetFORMIN [glucoPHAGE] 1,000 mg PO BID #60 tab risperiDONE [RisperDAL Tab] 2 mg PO HS 30 Days #30 tab Sertraline [Zoloft] 100 mg PO DAILY 30 Days #30 tab traZODone [Desyrel] 200 mg PO HS 30 Days #60 tab - Antipsychotic Medications Pt discharged on 2 or more routine antipsychotic medications: No
== END 2018-06-09 13:35 | disposition home or self-care (01) | DRG 430 ==
LOC: H.ER 10:40 → H.ERHOLD 19:56 → H.PSYCH 23:10
PROVIDERS: ADMIT Psychiatry & Neurology Psychiatry; ATTEND Psychiatry & Neurology Psychiatry
PROC: GZHZZZZ Group Psychotherapy (ICD-10-PCS; principal; 2018-06-01)
PROC: GZ58ZZZ Individual Psychotherapy, Cognitive-Behavioral (ICD-10-PCS; 2018-06-01)
PROC: HZ52ZZZ Individual Psychotherapy for Substance Abuse Treatment, Cognitive-Behavioral (ICD-10-PCS; 2018-06-01)
DX: F33.3 Major depressive disorder, recurrent, severe with psychotic symptoms (principal); F14.159 Cocaine abuse with cocaine-induced psychotic disorder, unspecified; F43.10 Post-traumatic stress disorder, unspecified; R45.851 Suicidal ideations; F12.10 Cannabis abuse, uncomplicated; Z91.14 Patient's other noncompliance with medication regimen; Z91.19 Patient's noncompliance with other medical treatment and regimen; F41.9 Anxiety disorder, unspecified; E11.9 Type 2 diabetes mellitus without complications; I10 Essential (primary) hypertension; E78.00 Pure hypercholesterolemia, unspecified; Z79.84 Long term (current) use of oral hypoglycemic drugs